=== PATIENT | female | born 1995 | race Caucasian/White ===

== ENCOUNTER 2021-09-28 23:06 | Emergency (ER) | payer SELFPAY ==
[2021-09-29 00:44] VITALS: BP 127/92
== END 2021-09-29 11:03 | disposition left against medical advice (07) ==
LOC: ED 23:06
DX: R10.9 Unspecified abdominal pain (principal); R11.0 Nausea; Z53.21 Procedure and treatment not carried out due to patient leaving prior to being seen by health care provider